=== PATIENT | female | born 1980 | race American Indian/Alaskan Native ===

== ENCOUNTER 2017-04-09 16:29 | Emergency (ER) | payer SELFPAY ==
[2017-04-09 16:32] VITALS: BMI 36.0
[2017-04-09 16:37] VITALS: BP 117/67; PULSE 80; RESP 19; TEMP 98.7; O2SAT 99
--- NOTE | 2017-04-09 16:51 | ED PDOC ---
Arrival/HPI - General Historian: Patient - General Chief Complaint: Trauma Time Seen by Provider: 04/09/17 16:38 - History of Present Illness Narrative History of Present Illness (Text): 04/09/17 16:48 36yo female in ED complaining of left knee/wrist and right sided neck pain s/p trauma minutes [employer]. States she slipped in a store and fell. she reports that while she fell the sliding door hit her neck b/l. Having pain on the right side. she denies hitting head anywhere. Denies LOC, focal weakness, any other complaint. (Diru,Happiness A) Past Medical History - Provider Review Nursing Documentation Reviewed: Yes - Infectious Disease Hx of Infectious Diseases: None - Psychiatric Hx Psychophysiologic Disorder: No Hx Anxiety: No Hx Bipolar Disorder: No Hx Depression: No Hx Emotional Abuse: No Hx Hallucinations: No Hx Panic Disorder: No Hx Post Traumatic Stress Disorder: No Hx Psychosis: No Hx Physical Abuse: No Hx Schizophrenia: No Hx Sexual Abuse: No Hx Substance Use: No - Anesthesia Hx Anesthesia: Yes Hx Anesthesia Reactions: No Hx Malignant Hyperthermia: No - Suicidal Assessment Feels Threatened In Home Enviroment: No Family/Social History - Physician Review Nursing Documentation Reviewed: Yes Family/Social History: Unknown Family HX Smoking Status: Never Smoked Hx Alcohol Use: No Hx Substance Use: No Hx Substance Use Treatment: No Allergies/Home Meds Allergies/Adverse Reactions: Allergies Penicillins Allergy (Verified 04/09/17 16:32) RASH Review of Systems - Physician Review All systems were reviewed & negative as marked: Yes - Review of Systems Constitutional: Normal Eyes: Normal ENT: Normal Respiratory: Normal Cardiovascular: Normal Gastrointestinal: Normal Genitourinary Female: Normal Musculoskeletal: Arthralgias (Left knee/wrist pain), Neck Pain Skin: Normal Neurological: Normal Endocrine: Normal Hemo/Lymphatic: Normal Psychiatric: Normal Physical Exam Vital Signs Reviewed: Yes Temperature: Afebrile Blood Pressure: Normal Pulse: Regular Respiratory Rate: Normal Appearance: Positive for: Well-Appearing, Non-Toxic, Comfortable Pain Distress: None Mental Status: Positive for: Alert and Oriented X 3 - Systems Exam Head: Present: Atraumatic, Normocephalic Pupils: Present: PERRL Extroacular Muscles: Present: EOMI Conjunctiva: Present: Normal Mouth: Present: Moist Mucous Membranes Neck: Present: Normal Range of Motion, Paraspinal Tenderness (Mild right paraspinous tenderness). No: MIDLINE TENDERNESS Respiratory/Chest: Present: Clear to Auscultation, Good Air Exchange. No: Respiratory Distress, Accessory Muscle Use Cardiovascular: Present: Regular Rate and Rhythm, Normal S1, S2. No: Murmurs Abdomen: Present: Normal Bowel Sounds. No: Tenderness, Distention, Peritoneal Signs Back: Present: Normal Inspection Upper Extremity: Present: Normal ROM, NORMAL PULSES, Tenderness (Left wrist/ 5th MCP), Neurovascularly Intact, Capillary Refill < 2s. No: Cyanosis, Edema, Swelling, Erythema, Temperature Abnormalties, Deformity Lower Extremity: Present: Normal Inspection, NORMAL PULSES, Normal ROM, Neurovascularly Intact. No: Edema, Tenderness, Swelling, Deformity, Temperature Abnormalties Neurological: Present: GCS=15, CN II-XII Intact, Speech Normal Skin: Present: Warm, Dry, Normal Color. No: Rashes Psychiatric: Present: Alert, Oriented x 3, Normal Insight, Normal Concentration Medical Decision Making ED Course and Treatment: 04/09/17 17:59 Left hand/wrist/knee xray - No acute fracture CS xray - No acute fracture Abdulaziz wrap applied to hand. Result was DW the pt. Referred to her PMD/orthopedist. TRT ED for any new or worsening symptoms (Raghu Winston) I was available for consultation during PA evaluation. The chart was reviewed by me, and I agree with disposition. The documented history was done by the physician second hand paper machine. The documented physical exam was done by the physician second hand paper machine. The documented procedures were done by the physician second hand paper machine.. ( Misha Martinez) - RAD Interpretation Radiology Orders: 04/09/17 16:38 CERVICAL SPINE >18YR W/OBLIQUE [RAD] Stat KNEE LEFT 2 VIEWS (AP & LAT) [RAD] Stat 04/09/17 16:39 WRIST, LEFT 3 VIEWS [RAD] Stat 04/09/17 16:55 HAND LEFT 3 VIEWS ROUTINE [RAD] Stat - Medication Orders Current Medication Orders: Discontinued Medications Ibuprofen (Motrin Tab) 600 mg PO STAT STA Stop: 04/09/17 16:40 Last Admin: 04/09/17 16:54 Dose: 600 mg Disposition/Present on Arrival - Present on Arrival Any Indicators Present on Arrival: No History of DVT/PE: No History of Uncontrolled Diabetes: No Urinary Catheter: No History of Decub. Ulcer: No History Surgical Site Infection Following: None - Disposition Have Diagnosis and Disposition been Completed?: Yes Disposition Time: 18:00 Patient Plan: Discharge - Disposition Diagnosis: Musculoskeletal pain Disposition: HOME/ ROUTINE Condition: STABLE Discharge Instructions (ExitCare): Musculoskeletal Pain (ED) Additional Instructions: Apply ice to area Follow up with your Doctor Return to ED for any new or worsening symptoms Prescriptions: Ibuprofen [Motrin Tab] 600 mg PO Q6 #20 tab Referrals: Jacky Fitzpatrick [Primary Care Provider] - Follow up with primary Monster Tejeda III, MD [Medical Doctor] - Follow up with primary
--- NOTE | 2017-04-09 18:09 | RAD ---
PROCEDURE: Left Knee Radiographs, two views. HISTORY: COMPARISON: None available. FINDINGS: BONES: No acute displaced fracture. JOINTS: No dislocation. JOINT EFFUSION: No significant joint effusion. OTHER FINDINGS: None. IMPRESSION: No acute displaced fracture, dislocation, or significant joint effusion identified. If symptoms persist, or if there is continued clinical concern, x-ray follow-up in 7-10 days should be considered.
--- NOTE | 2017-04-09 18:11 | RAD ---
PROCEDURE: Left hand radiographs Left wrist radiographs HISTORY: hand and wrist pain pain s/p trauma COMPARISON: None available. FINDINGS: BONES: No acute displaced fracture. JOINTS: No dislocation. SOFT TISSUES: Unremarkable. No evidence of radiopaque foreign body. OTHER FINDINGS: None. IMPRESSION: No acute displaced fracture, dislocation, or significant joint effusion identified. If symptoms persist, or if there is continued clinical concern, x-ray follow-up in 7-10 days should be considered.
--- NOTE | 2017-04-09 18:18 | RAD ---
PROCEDURE: Cervical Spine Radiographs. HISTORY: Pain. COMPARISON: None available. FINDINGS: Examination limited due to slight patient motion as well as metal artifact from patient's hair pin which could not be removed, in particular limited evaluation of C1-C2. BONES: Straightening of the normal cervical lordosis may be related to muscle spasm or positioning. No acute displaced fracture identified. Dens tip is obscured, and cannot be adequately assessed. DISC SPACES: Unremarkable. SOFT TISSUES: Unremarkable. No prevertebral soft tissue swelling. OTHER FINDINGS: None. IMPRESSION: Examination limited due to slight patient motion as well as metal artifact from patient's hair pin which could not be removed; in particular limited evaluation of C1-C2. Recommend clinical correlation and suggest further evaluation with CT of cervical spine if indicated. No acute fracture or subluxation identified. Straightening of the normal cervical lordosis may be related to muscle spasm or positioning.
== END 2017-04-09 18:22 | disposition home or self-care (01) ==
LOC: ED 16:29
DX: M79.1 Myalgia (principal)